=== PATIENT | female | born 1985 ===

== ENCOUNTER 2021-03-09 20:56 | Inpatient (IN) ==
[2021-03-09] MEDS ORDERED: ALBUTEROL 2.5 MG/3 ML NEB RESP TX PRN (21:18)
[2021-03-09] MEDS ORDERED: MIDAZOLAM 2 MG/2 ML VIAL IV ONE (23:13)
[2021-03-09] MEDS ORDERED: MIDAZOLAM 2 MG/2 ML VIAL ONE (23:15)
[2021-03-09] MEDS: MIDAZOLAM 100 MG in SODIUM CHLORIDE 0.9% 80 ML IV PRN (23:30)
[2021-03-09] MEDS ORDERED: SODIUM CHLORIDE 0.9% 500 ML IV ONE (23:40)
[2021-03-09] MEDS: PANTOPRAZOLE 40 MG VIAL IV SCH (23:52)
[2021-03-09] MEDS: ENOXAPARIN 40 MG/0.4 ML SYRINGE SUBCUT SCH (23:58)
[2021-03-10] MEDS: LACTATED RINGERS 1,000 ML IV SCH ×3 (00:20→16:53)
[2021-03-10] MEDS ORDERED: ALBUTEROL/IPRATROPIUM 3 ML NEB RESP TX SCH (01:00)
[2021-03-10 01:08] LABS: ABG Base Excess 1.1 MMOL/L (-2.5-2.5); ABG HCO3 24.9 MMOL/L (20-26); ABG PCO2 37.1 MM HG (35-48); ABG PH 7.445 (7.35-7.45); ABG PO2 199.5 MM HG (80-95); ABG TCO2 26.1 MMOL/L (23-27)
[2021-03-10 01:09] LABS: ABG Oxygen Saturation 99.4 % (95-100)
[2021-03-10 04:11] LABS: Hematocrit 37.8 VOL% (35.7-47.0); Hemoglobin 11.9 GM/DL (12.0-16.0); Immature Granulocytes % 0.7 %; Immature Granulocytes Absolute 0.06 #; Lymphocytes % 11.9 % (21.3-54.2); Mean Corpuscular HGB Conc 31.5 GM/DL (32-36); Mean Corpuscular Volume 84.2 FL (87-102); Mean Platelet Volume 10.3 FL (9.6-12.0); Monocytes % 6.1 % (1.7-12.7); Neutrophils % 81.3 % (38.7-73.9); Platelet Count 203 T/CUMM (130-400); Red Blood Count 4.49 MC/CUMM (3.8-5.5); White Blood Count 8.1 T/CUMM (4-12)
[2021-03-10 04:20] LABS: INR 0.9; PT Patient Result 10.3 SECS (10.5-12.0)
[2021-03-10 04:38] LABS: Albumin 1.9 G/DL (3.4-5.0); Bilirubin,Total 0.4 MG/DL (0.20-1.00); Calcium 7.8 MG/DL (8.5-10.1); Osmolality,Calculated 287.8 MOS/KG (273-304); Thyroid Stimulating Hormone 0.464 uIU/ml (0.358-3.74); Total Protein 5.7 G/DL (6.4-8.2)
[2021-03-10] MEDS ORDERED: INFLUENZA VIRUS VACCINE 0.5 ML SYRINGE IM ONE (05:08)
[2021-03-10] MEDS: DEXAMETHASONE 10 MG/1 ML VIAL IV SCH (09:02)
[2021-03-10] MEDS: ALBUTEROL INHALER 18 GM INH SCH ×4 (09:03→18:27)
[2021-03-10] MEDS: PIPERACILLIN/TAZOBACTAM 3,375 MG in SODIUM CHLORIDE 0.9% 100 ML IV SCH ×2 (09:03→16:07)
[2021-03-10] MEDS: ACETAMINOPHEN 325 MG TABLET PER TUBE PRN (09:03)
[2021-03-10] MEDS: ENOXAPARIN 40 MG/0.4 ML SYRINGE SUBCUT SCH ×2 (12:16→22:36)
[2021-03-10] MEDS: MIDAZOLAM 100 MG in SODIUM CHLORIDE 0.9% 80 ML IV PRN ×2 (12:47→23:11)
[2021-03-10] MEDS ORDERED: GLUCAGON 1 MG VIAL IM PRN (15:09)
[2021-03-10] MEDS ORDERED: DEXTROSE 50% 25 GM/50 ML SYRINGE IV PRN (15:26)
[2021-03-10] MEDS: BARICITINIB 2 MG TABLET PER TUBE SCH (16:06)
[2021-03-10] MEDS: INSULIN REGULAR 100 UNIT/ML SUBCUT SCH (18:26)
[2021-03-10] MEDS: ASCORBIC ACID 500 MG TABLET PO SCH (20:24)
[2021-03-10] MEDS: PANTOPRAZOLE 40 MG VIAL IV SCH (22:36)
[2021-03-11] MEDS: PIPERACILLIN/TAZOBACTAM 3,375 MG in SODIUM CHLORIDE 0.9% 100 ML IV SCH ×3 (00:38→16:35)
[2021-03-11] MEDS: INSULIN REGULAR 100 UNIT/ML SUBCUT SCH ×4 (00:56→18:09)
[2021-03-11] MEDS: ALBUTEROL INHALER 18 GM INH SCH ×4 (00:57→20:13)
[2021-03-11 03:21] LABS: Basophils % 0.1 % (0.0-0.8); Hematocrit 36.6 VOL% (35.7-47.0); Hemoglobin 11.7 GM/DL (12.0-16.0); Immature Granulocytes Absolute 0.09 #; Lymphocytes # 0.9 10*3/uL (1.4-4.0); Lymphocytes % 9.5 % (21.3-54.2); Mean Corpuscular Volume 84.1 FL (87-102); Mean Platelet Volume 10.1 FL (9.6-12.0); Monocytes % 5.9 % (1.7-12.7); Neutrophils % 83.5 % (38.7-73.9); Platelet Count 212 T/CUMM (130-400); Red Blood Count 4.35 MC/CUMM (3.8-5.5); Red Cell Distribution Width 12.9 % (9.3-17.3); White Blood Count 9.2 T/CUMM (4-12)
[2021-03-11 03:43] LABS: Alanine Aminotransferase 208 U/L (13-56); Albumin 1.9 G/DL (3.4-5.0); Alkaline Phosphatase 78 U/L (45-117); Aspartate Amino Transferase 85 U/L (0-37); Bilirubin,Total < 0.39 MG/DL (0.20-1.00); Blood Urea Nitrogen 15 MG/DL (7-18); Calcium 8.3 MG/DL (8.5-10.1); Carbon Dioxide 26 MMOL/L (21-32); Estimated Glom Filtration Rate 129 ML/MIN; Ferritin 864.2 ng/mL (8-252); Glucose 182 MG/DL (74-106); Osmolality,Calculated 286.3 MOS/KG (273-304); Potassium 4.1 MMOL/L (3.5-5.1); Sodium 141 MMOL/L (136-145); Total Protein 5.6 G/DL (6.4-8.2)
[2021-03-11 04:08] LABS: ABG HCO3 26.1 MMOL/L (20-26); ABG Oxygen Saturation 95.3 % (95-100); ABG PCO2 36.2 MM HG (35-48); ABG PH 7.458 (7.35-7.45); ABG PO2 76.8 MM HG (80-95); ABG TCO2 22.4 MMOL/L (23-27)
[2021-03-11] MEDS: LACTATED RINGERS 1,000 ML IV SCH (05:57)
[2021-03-11] MEDS: ZINC GLUCONATE 50 MG TABLET PO SCH (09:19)
[2021-03-11] MEDS: POTASSIUM PHOS/SOD PHOS POWDER 250 MG PACK PO SCH ×3 (09:19→20:13)
[2021-03-11] MEDS: ASCORBIC ACID 500 MG TABLET PO SCH ×2 (09:19→20:13)
[2021-03-11] MEDS: BARICITINIB 2 MG TABLET PER TUBE SCH (09:19)
[2021-03-11] MEDS: DEXAMETHASONE 10 MG/1 ML VIAL IV SCH (09:20)
[2021-03-11] MEDS: MIDAZOLAM 100 MG in SODIUM CHLORIDE 0.9% 80 ML IV PRN ×2 (11:26→23:10)
[2021-03-11] MEDS: CHOLECALCIFEROL 1,000 UNIT TABLET PO SCH (12:45)
[2021-03-11] MEDS: ENOXAPARIN 40 MG/0.4 ML SYRINGE SUBCUT SCH ×2 (12:45→22:39)
[2021-03-11] MEDS: PANTOPRAZOLE 40 MG VIAL IV SCH (22:40)
[2021-03-12] MEDS: ALBUTEROL INHALER 18 GM INH SCH ×4 (00:42→18:00)
[2021-03-12] MEDS: PIPERACILLIN/TAZOBACTAM 3,375 MG in SODIUM CHLORIDE 0.9% 100 ML IV SCH ×3 (00:42→16:21)
[2021-03-12] MEDS: INSULIN REGULAR 100 UNIT/ML SUBCUT SCH ×4 (00:42→17:56)
[2021-03-12 04:22] LABS: ABG Base Excess 2.1 MMOL/L (-2.5-2.5); ABG HCO3 26.2 MMOL/L (20-26); ABG Oxygen Saturation 97.1 % (95-100); ABG PCO2 38.4 MM HG (35-48); ABG PH 7.441 (7.35-7.45); ABG PO2 96.6 MM HG (80-95); ABG TCO2 23.1 MMOL/L (23-27)
[2021-03-12 04:24] LABS: Basophils % 0.2 % (0.0-0.8); Hematocrit 37.3 VOL% (35.7-47.0); Immature Granulocytes Absolute 0.31 #; Lymphocytes # 1.5 10*3/uL (1.4-4.0); Lymphocytes % 9.4 % (21.3-54.2); Mean Corpuscular HGB Conc 32.2 GM/DL (32-36); Mean Corpuscular Volume 83.6 FL (87-102); Mean Platelet Volume 10.1 FL (9.6-12.0); Monocytes % 7.6 % (1.7-12.7); Neutrophils % 80.8 % (38.7-73.9); Platelet Count 277 T/CUMM (130-400); Red Blood Count 4.46 MC/CUMM (3.8-5.5); Red Cell Distribution Width 12.9 % (9.3-17.3); White Blood Count 15.5 T/CUMM (4-12)
[2021-03-12 04:57] LABS: Alanine Aminotransferase 238 U/L (13-56); Albumin 1.9 G/DL (3.4-5.0); Alkaline Phosphatase 90 U/L (45-117); Aspartate Amino Transferase 95 U/L (0-37); Bilirubin,Total < 0.39 MG/DL (0.20-1.00); Blood Urea Nitrogen 16 MG/DL (7-18); Calcium 8.5 MG/DL (8.5-10.1); Carbon Dioxide 27 MMOL/L (21-32); Estimated Glom Filtration Rate 109 ML/MIN; Ferritin 779.1 ng/mL (8-252); Glucose 195 MG/DL (74-106); Osmolality,Calculated 286.3 MOS/KG (273-304); Sodium 141 MMOL/L (136-145); Total Protein 5.8 G/DL (6.4-8.2)
[2021-03-12] MEDS: POTASSIUM PHOS/SOD PHOS POWDER 250 MG PACK PO SCH ×3 (08:17→20:00)
[2021-03-12] MEDS: ZINC GLUCONATE 50 MG TABLET PO SCH (08:18)
[2021-03-12] MEDS: CHOLECALCIFEROL 1,000 UNIT TABLET PO SCH (08:18)
[2021-03-12] MEDS: ASCORBIC ACID 500 MG TABLET PO SCH ×2 (08:18→20:00)
[2021-03-12] MEDS: BARICITINIB 2 MG TABLET PER TUBE SCH (08:18)
[2021-03-12] MEDS: DEXAMETHASONE 10 MG/1 ML VIAL IV SCH (08:19)
[2021-03-12] MEDS: ENOXAPARIN 100 MG/ML SYRINGE SUBCUT SCH ×2 (09:56→20:00)
[2021-03-12] MEDS: MIDAZOLAM 100 MG in SODIUM CHLORIDE 0.9% 80 ML IV PRN ×2 (10:34→23:54)
[2021-03-13] MEDS: ALBUTEROL INHALER 18 GM INH SCH ×4 (00:14→19:00)
[2021-03-13] MEDS: PIPERACILLIN/TAZOBACTAM 3,375 MG in SODIUM CHLORIDE 0.9% 100 ML IV SCH ×3 (00:14→18:07)
[2021-03-13] MEDS: INSULIN REGULAR 100 UNIT/ML SUBCUT SCH ×4 (00:14→18:28)
[2021-03-13] MEDS: PANTOPRAZOLE 40 MG VIAL IV SCH ×2 (00:21→23:15)
[2021-03-13 04:43] LABS: Basophils % 0.2 % (0.0-0.8); Eosinophils % 0.2 % (0.00-10.9); Hematocrit 36.5 VOL% (35.7-47.0); Hemoglobin 11.6 GM/DL (12.0-16.0); Immature Granulocytes Absolute 0.69 #; Lymphocytes # 1.8 10*3/uL (1.4-4.0); Lymphocytes % 10.4 % (21.3-54.2); Mean Corpuscular HGB Conc 31.8 GM/DL (32-36); Mean Corpuscular Volume 84.7 FL (87-102); Mean Platelet Volume 10.4 FL (9.6-12.0); Monocytes % 8.3 % (1.7-12.7); Neutrophils % 76.9 % (38.7-73.9); Platelet Count 315 T/CUMM (130-400); Red Blood Count 4.31 MC/CUMM (3.8-5.5); Red Cell Distribution Width 12.9 % (9.3-17.3); White Blood Count 17.1 T/CUMM (4-12)
[2021-03-13 05:00] LABS: Alanine Aminotransferase 237 U/L (13-56); Albumin 1.9 G/DL (3.4-5.0); Alkaline Phosphatase 91 U/L (45-117); Aspartate Amino Transferase 56 U/L (0-37); Bilirubin,Total < 0.39 MG/DL (0.20-1.00); Blood Urea Nitrogen 18 MG/DL (7-18); Calcium 8.4 MG/DL (8.5-10.1); Carbon Dioxide 28 MMOL/L (21-32); Estimated Glom Filtration Rate 109 ML/MIN; Ferritin 522.1 ng/mL (8-252); Glucose 195 MG/DL (74-106); Osmolality,Calculated 285.4 MOS/KG (273-304); Potassium 4.2 MMOL/L (3.5-5.1); Sodium 140 MMOL/L (136-145); Total Protein 5.8 G/DL (6.4-8.2)
[2021-03-13 05:10] LABS: Hypochromia 1+; Lymphocytes 6 % (20-55); Microcytosis 1+; Ovalocytes Slight; Segmented Neutrophils 88 % (50-85); Total Cells Counted 100
[2021-03-13 05:11] LABS: Platelet Estimate Normal
[2021-03-13 05:12] LABS: Bilirubin,Direct 0.12 MG/DL (0.0-0.20); Bilirubin,Total 0.4 MG/DL (0.20-1.00)
[2021-03-13 05:13] LABS: Bilirubin,Indirect 0.3 MG/DL (0.0-1.0); Total Protein 5.3 G/DL (6.4-8.2)
[2021-03-13] MEDS: DEXAMETHASONE 10 MG/1 ML VIAL IV SCH (09:27)
[2021-03-13] MEDS: CHOLECALCIFEROL 1,000 UNIT TABLET PO SCH (09:29)
[2021-03-13] MEDS: ZINC GLUCONATE 50 MG TABLET PO SCH (09:29)
[2021-03-13] MEDS: ENOXAPARIN 100 MG/ML SYRINGE SUBCUT SCH ×2 (09:29→20:37)
[2021-03-13] MEDS: BARICITINIB 2 MG TABLET PER TUBE SCH (09:29)
[2021-03-13] MEDS: ASCORBIC ACID 500 MG TABLET PO SCH ×2 (09:29→20:37)
[2021-03-13] MEDS: POTASSIUM PHOS/SOD PHOS POWDER 250 MG PACK PO SCH ×3 (11:09→20:37)
[2021-03-13] MEDS: MIDAZOLAM 100 MG in SODIUM CHLORIDE 0.9% 80 ML IV PRN ×2 (11:09→21:56)
[2021-03-14] MEDS: INSULIN REGULAR 100 UNIT/ML SUBCUT SCH ×4 (00:55→17:47)
[2021-03-14 03:55] LABS: Basophils % 0.2 % (0.0-0.8); Eosinophils % 0.2 % (0.00-10.9); Hematocrit 38.1 VOL% (35.7-47.0); Immature Granulocytes % 6.4 %; Immature Granulocytes Absolute 1.19 #; Lymphocytes # 1.8 10*3/uL (1.4-4.0); Lymphocytes % 9.6 % (21.3-54.2); Mean Corpuscular HGB Conc 31.5 GM/DL (32-36); Mean Corpuscular Volume 85.2 FL (87-102); Mean Platelet Volume 10.2 FL (9.6-12.0); Monocytes % 6.8 % (1.7-12.7); Neutrophils % 76.8 % (38.7-73.9); Platelet Count 350 T/CUMM (130-400); Red Blood Count 4.47 MC/CUMM (3.8-5.5); White Blood Count 18.6 T/CUMM (4-12)
[2021-03-14 04:09] LABS: Calcium 8.6 MG/DL (8.5-10.1); Osmolality,Calculated 286.4 MOS/KG (273-304)
[2021-03-14 04:31] LABS: Alanine Aminotransferase 201 U/L (13-56); Alkaline Phosphatase 86 U/L (45-117); Aspartate Amino Transferase 38 U/L (0-37); Bilirubin,Indirect 0.2 MG/DL (0.0-1.0); Bilirubin,Total < 0.39 MG/DL (0.20-1.00)
[2021-03-14 04:47] LABS: Lymphocytes 11 % (20-55); Metamyelocytes 1 %; Segmented Neutrophils 81 % (50-85); Total Cells Counted 100
[2021-03-14 04:48] LABS: Atypical Lymphocytes Few; Hypochromia 2+; Platelet Estimate Normal
[2021-03-14 04:52] LABS: ABG Base Excess 3.2 MMOL/L (-2.5-2.5); ABG HCO3 27.1 MMOL/L (20-26); ABG Oxygen Saturation 91.5 % (95-100); ABG PCO2 41.1 MM HG (35-48); ABG PH 7.436 (7.35-7.45); ABG PO2 64.8 MM HG (80-95); ABG TCO2 24.2 MMOL/L (23-27)
[2021-03-14] MEDS: PIPERACILLIN/TAZOBACTAM 3,375 MG in SODIUM CHLORIDE 0.9% 100 ML IV SCH ×2 (06:22→16:33)
[2021-03-14] MEDS: ALBUTEROL INHALER 18 GM INH SCH ×3 (09:09→14:42)
[2021-03-14] MEDS: ZINC GLUCONATE 50 MG TABLET PO SCH (09:10)
[2021-03-14] MEDS: BARICITINIB 2 MG TABLET PER TUBE SCH (09:10)
[2021-03-14] MEDS: CHOLECALCIFEROL 1,000 UNIT TABLET PO SCH (09:10)
[2021-03-14] MEDS: ENOXAPARIN 100 MG/ML SYRINGE SUBCUT SCH ×2 (09:10→20:35)
[2021-03-14] MEDS: POTASSIUM PHOS/SOD PHOS POWDER 250 MG PACK PO SCH ×2 (09:10→16:33)
[2021-03-14] MEDS: DEXAMETHASONE 10 MG/1 ML VIAL IV SCH (09:10)
[2021-03-14] MEDS: ASCORBIC ACID 500 MG TABLET PO SCH ×2 (09:10→20:34)
[2021-03-14] MEDS: FUROSEMIDE 40 MG/4 ML VIAL IV SCH (10:30)
[2021-03-14] MEDS: MIDAZOLAM 100 MG in SODIUM CHLORIDE 0.9% 80 ML IV PRN (10:45)
[2021-03-14] MEDS ORDERED: VANCOMYCIN INJ 1,000 MG in SODIUM CHLORIDE 0.9% 250 ML IV ONE (12:49)
[2021-03-15] MEDS: PANTOPRAZOLE 40 MG VIAL IV SCH (00:23)
[2021-03-15] MEDS: PIPERACILLIN/TAZOBACTAM 3,375 MG in SODIUM CHLORIDE 0.9% 100 ML IV SCH ×2 (00:59→08:26)
[2021-03-15] MEDS: INSULIN REGULAR 100 UNIT/ML SUBCUT SCH ×4 (00:59→17:28)
[2021-03-15] MEDS: POTASSIUM PHOS/SOD PHOS POWDER 250 MG PACK PO SCH ×4 (01:01→20:37)
[2021-03-15] MEDS: MIDAZOLAM 100 MG in SODIUM CHLORIDE 0.9% 80 ML IV PRN ×2 (01:13→15:15)
[2021-03-15 04:23] LABS: Basophils % 0.2 % (0.0-0.8); Eosinophils # 0.1 10*3/uL (0.0-0.87); Eosinophils % 0.7 % (0.00-10.9); Hematocrit 37.3 VOL% (35.7-47.0); Hemoglobin 11.8 GM/DL (12.0-16.0); Immature Granulocytes % 8.4 %; Immature Granulocytes Absolute 1.54 #; Lymphocytes # 2.2 10*3/uL (1.4-4.0); Lymphocytes % 12.2 % (21.3-54.2); Mean Corpuscular HGB Conc 31.6 GM/DL (32-36); Mean Corpuscular Volume 84.6 FL (87-102); Mean Platelet Volume 10.2 FL (9.6-12.0); Monocytes % 7.3 % (1.7-12.7); Neutrophils % 71.2 % (38.7-73.9); Platelet Count 373 T/CUMM (130-400); Red Blood Count 4.41 MC/CUMM (3.8-5.5); Red Cell Distribution Width 12.9 % (9.3-17.3); White Blood Count 18.4 T/CUMM (4-12)
[2021-03-15 04:30] LABS: Allen Test Positive; Pt O2 Delivery Device Ventilator
[2021-03-15 04:31] LABS: ABG Base Excess 4.6 MMOL/L (-2.5-2.5); ABG Oxygen Saturation 93.6 % (95-100); ABG PCO2 42.5 MM HG (35-48); ABG PH 7.452 (7.35-7.45); ABG PO2 69.7 MM HG (80-95); ABG TCO2 30.3 MMOL/L (23-27)
[2021-03-15 04:41] LABS: Calcium 8.5 MG/DL (8.5-10.1); Osmolality,Calculated 287.3 MOS/KG (273-304); Potassium 4.1 MMOL/L (3.5-5.1)
[2021-03-15 04:43] LABS: Hypochromia Slight; Lymphocytes 15 % (20-55); Microcytosis Slight; Platelet Estimate Adequate; Segmented Neutrophils 79 % (50-85); Total Cells Counted 100
[2021-03-15 05:03] LABS: Alanine Aminotransferase 193 U/L (13-56); Albumin 2.2 G/DL (3.4-5.0); Alkaline Phosphatase 83 U/L (45-117); Aspartate Amino Transferase 44 U/L (0-37); Bilirubin,Indirect 0.2 MG/DL (0.0-1.0); Bilirubin,Total < 0.39 MG/DL (0.20-1.00); Total Protein 5.7 G/DL (6.4-8.2)
[2021-03-15] MEDS: ALBUTEROL INHALER 18 GM INH SCH ×4 (07:52→20:01)
[2021-03-15] MEDS: CHOLECALCIFEROL 1,000 UNIT TABLET PO SCH (08:27)
[2021-03-15] MEDS: BARICITINIB 2 MG TABLET PER TUBE SCH (08:27)
[2021-03-15] MEDS: ZINC GLUCONATE 50 MG TABLET PO SCH (08:27)
[2021-03-15] MEDS: ASCORBIC ACID 500 MG TABLET PO SCH ×2 (08:27→20:37)
[2021-03-15] MEDS: ENOXAPARIN 100 MG/ML SYRINGE SUBCUT SCH ×2 (08:28→20:37)
[2021-03-15] MEDS: FUROSEMIDE 40 MG/4 ML VIAL IV SCH (08:29)
[2021-03-15] MEDS: DEXAMETHASONE 10 MG/1 ML VIAL IV SCH (08:32)
[2021-03-15] MEDS: CLINDAMYCIN INJ 600 MG/50 ML PREMIX IV SCH ×2 (12:45→20:37)
[2021-03-15] MEDS ORDERED: DEXMEDETOMIDINE 200 MCG in SODIUM CHLORIDE 0.9% 48 ML IV PRN (13:27)
[2021-03-15] MEDS: DEXMEDETOMIDINE 400 MCG in SODIUM CHLORIDE 0.9% 96 ML IV PRN (19:45)
[2021-03-16] MEDS: INSULIN REGULAR 100 UNIT/ML SUBCUT SCH ×4 (00:20→18:57)
[2021-03-16] MEDS: ALBUTEROL INHALER 18 GM INH SCH ×4 (00:20→18:58)
[2021-03-16] MEDS: PANTOPRAZOLE 40 MG VIAL IV SCH (00:20)
[2021-03-16] MEDS: DEXMEDETOMIDINE 400 MCG in SODIUM CHLORIDE 0.9% 96 ML IV PRN ×3 (03:00→17:44)
[2021-03-16] MEDS: CLINDAMYCIN INJ 600 MG/50 ML PREMIX IV SCH ×3 (03:43→20:38)
[2021-03-16 04:03] LABS: Basophils % 0.2 % (0.0-0.8); Eosinophils # 0.1 10*3/uL (0.0-0.87); Eosinophils % 0.6 % (0.00-10.9); Hematocrit 40.2 VOL% (35.7-47.0); Hemoglobin 12.7 GM/DL (12.0-16.0); Immature Granulocytes % 7.7 %; Lymphocytes # 2.1 10*3/uL (1.4-4.0); Lymphocytes % 10.7 % (21.3-54.2); Mean Corpuscular HGB Conc 31.6 GM/DL (32-36); Mean Corpuscular Volume 84.8 FL (87-102); Mean Platelet Volume 10.3 FL (9.6-12.0); Monocytes % 6.9 % (1.7-12.7); Neutrophils % 73.9 % (38.7-73.9); Platelet Count 409 T/CUMM (130-400); Red Blood Count 4.74 MC/CUMM (3.8-5.5); Red Cell Distribution Width 13.1 % (9.3-17.3); White Blood Count 19.6 T/CUMM (4-12)
[2021-03-16 04:19] LABS: ABG Base Excess 3.3 MMOL/L (-2.5-2.5); ABG HCO3 27.6 MMOL/L (20-26); ABG Oxygen Saturation 94.4 % (95-100); ABG PCO2 40.7 MM HG (35-48); ABG PH 7.449 (7.35-7.45); ABG PO2 71.8 MM HG (80-95); ABG TCO2 28.8 MMOL/L (23-27)
[2021-03-16 04:21] LABS: Calcium 8.9 MG/DL (8.5-10.1); Osmolality,Calculated 293.4 MOS/KG (273-304); Potassium 4.5 MMOL/L (3.5-5.1)
[2021-03-16 04:29] LABS: Band Neutrophils 4 % (0-10); Hypochromia 1+; Lymphocytes 10 % (20-55); Microcytosis 1+; Myelocytes 2 %; Segmented Neutrophils 77 % (50-85); Total Cells Counted 100
[2021-03-16 04:30] LABS: Platelet Estimate Increased
[2021-03-16 04:47] LABS: Alanine Aminotransferase 194 U/L (13-56); Albumin 2.4 G/DL (3.4-5.0); Alkaline Phosphatase 89 U/L (45-117); Aspartate Amino Transferase 39 U/L (0-37); Bilirubin,Indirect 0.3 MG/DL (0.0-1.0); Bilirubin,Total < 0.39 MG/DL (0.20-1.00); Total Protein 6.2 G/DL (6.4-8.2)
[2021-03-16] MEDS ORDERED: DEXTROSE 50% 25 GM/50 ML VIAL IV PRN (05:27)
[2021-03-16] MEDS: ENOXAPARIN 100 MG/ML SYRINGE SUBCUT SCH ×2 (08:37→20:38)
[2021-03-16] MEDS: DEXAMETHASONE 10 MG/1 ML VIAL IV SCH (08:37)
[2021-03-16] MEDS: POTASSIUM PHOS/SOD PHOS POWDER 250 MG PACK PO SCH ×3 (08:38→20:38)
[2021-03-16] MEDS: ZINC GLUCONATE 50 MG TABLET PO SCH (08:38)
[2021-03-16] MEDS: CHOLECALCIFEROL 1,000 UNIT TABLET PO SCH (08:38)
[2021-03-16] MEDS: ASCORBIC ACID 500 MG TABLET PO SCH ×2 (08:38→20:38)
[2021-03-16] MEDS: BARICITINIB 2 MG TABLET PER TUBE SCH (08:38)
[2021-03-16] MEDS: FUROSEMIDE 40 MG/4 ML VIAL IV SCH (08:39)
[2021-03-16] MEDS: INSULIN GLARGINE 100 UNIT/ML SUBCUT SCH (11:50)
[2021-03-17] MEDS: DEXMEDETOMIDINE 400 MCG in SODIUM CHLORIDE 0.9% 96 ML IV PRN ×4 (00:40→21:36)
[2021-03-17] MEDS: PANTOPRAZOLE 40 MG VIAL IV SCH (00:57)
[2021-03-17] MEDS: INSULIN REGULAR 100 UNIT/ML SUBCUT SCH ×4 (00:57→18:10)
[2021-03-17] MEDS: ALBUTEROL INHALER 18 GM INH SCH ×4 (01:05→18:10)
[2021-03-17 04:26] LABS: ABG Base Excess 3.3 MMOL/L (-2.5-2.5); ABG HCO3 27.8 MMOL/L (20-26); ABG Oxygen Saturation 94.6 % (95-100); ABG PCO2 42.1 MM HG (35-48); ABG PH 7.438 (7.35-7.45); ABG PO2 73.9 MM HG (80-95); ABG TCO2 29.1 MMOL/L (23-27)
[2021-03-17] MEDS: CLINDAMYCIN INJ 600 MG/50 ML PREMIX IV SCH ×2 (05:00→11:59)
[2021-03-17] MEDS: ONDANSETRON 4 MG/2 ML VIAL IV PRN ×2 (05:00→20:36)
[2021-03-17 05:05] LABS: Basophils % 0.2 % (0.0-0.8); Eosinophils # 0.2 10*3/uL (0.0-0.87); Eosinophils % 0.7 % (0.00-10.9); Hematocrit 42.1 VOL% (35.7-47.0); Hemoglobin 13.2 GM/DL (12.0-16.0); Immature Granulocytes Absolute 1.27 #; Lymphocytes # 2.9 10*3/uL (1.4-4.0); Lymphocytes % 13.6 % (21.3-54.2); Mean Corpuscular HGB Conc 31.4 GM/DL (32-36); Mean Corpuscular Volume 85.4 FL (87-102); Mean Platelet Volume 10.5 FL (9.6-12.0); Monocytes % 6.8 % (1.7-12.7); Neutrophils % 72.7 % (38.7-73.9); Platelet Count 397 T/CUMM (130-400); Red Blood Count 4.93 MC/CUMM (3.8-5.5); Red Cell Distribution Width 13.2 % (9.3-17.3); White Blood Count 21.2 T/CUMM (4-12)
[2021-03-17 05:21] LABS: Alanine Aminotransferase 168 U/L (13-56); Albumin 2.5 G/DL (3.4-5.0); Alkaline Phosphatase 87 U/L (45-117); Aspartate Amino Transferase 32 U/L (0-37); Bilirubin,Total < 0.39 MG/DL (0.20-1.00); Blood Urea Nitrogen 30 MG/DL (7-18); Calcium 9.7 MG/DL (8.5-10.1); Carbon Dioxide 30 MMOL/L (21-32); Estimated Glom Filtration Rate 107 ML/MIN; Glucose 168 MG/DL (74-106); Osmolality,Calculated 286.5 MOS/KG (273-304); Potassium 3.9 MMOL/L (3.5-5.1); Sodium 139 MMOL/L (136-145); Total Protein 7.2 G/DL (6.4-8.2)
[2021-03-17 05:24] LABS: Band Neutrophils 1 % (0-10); Eosinophils 1 % (0-10); Hypochromia Slight; Lymphocytes 17 % (20-55); Microcytosis Slight; Platelet Estimate Adequate; Segmented Neutrophils 69 % (50-85); Total Cells Counted 100
[2021-03-17] MEDS: FUROSEMIDE 40 MG/4 ML VIAL IV SCH (08:06)
[2021-03-17] MEDS: DEXAMETHASONE 10 MG/1 ML VIAL IV SCH (08:09)
[2021-03-17] MEDS: BARICITINIB 2 MG TABLET PER TUBE SCH (08:10)
[2021-03-17] MEDS: ASCORBIC ACID 500 MG TABLET PO SCH ×2 (08:10→20:09)
[2021-03-17] MEDS: CHOLECALCIFEROL 1,000 UNIT TABLET PO SCH (08:11)
[2021-03-17] MEDS: ENOXAPARIN 100 MG/ML SYRINGE SUBCUT SCH ×2 (08:11→20:09)
[2021-03-17] MEDS: INSULIN GLARGINE 100 UNIT/ML SUBCUT SCH (08:11)
[2021-03-17] MEDS: POTASSIUM PHOS/SOD PHOS POWDER 250 MG PACK PO SCH ×3 (08:11→20:09)
[2021-03-17] MEDS: ZINC GLUCONATE 50 MG TABLET PO SCH (08:11)
[2021-03-17 11:21] LABS: Allen Test Positive; Pt O2 Delivery Device Ventilator
[2021-03-17 11:22] LABS: ABG Base Excess 3.9 MMOL/L (-2.5-2.5); ABG HCO3 27.8 MMOL/L (20-26); ABG Oxygen Saturation 96.3 % (95-100); ABG PCO2 42.5 MM HG (35-48); ABG PH 7.436 (7.35-7.45); ABG PO2 88.2 MM HG (80-95); ABG TCO2 24.5 MMOL/L (23-27)
[2021-03-17] MEDS: LEVOFLOXACIN INJ 750 MG/150 ML PREMIX IV SCH (14:13)
[2021-03-18] MEDS: ALBUTEROL INHALER 18 GM INH SCH ×4 (00:15→20:57)
[2021-03-18] MEDS: PANTOPRAZOLE 40 MG VIAL IV SCH ×2 (00:15→23:57)
[2021-03-18] MEDS: INSULIN REGULAR 100 UNIT/ML SUBCUT SCH ×4 (00:15→17:58)
[2021-03-18 04:26] LABS: ABG Base Excess 2.3 MMOL/L (-2.5-2.5); ABG HCO3 26.4 MMOL/L (20-26); ABG Oxygen Saturation 99.3 % (95-100); ABG PCO2 49.5 MM HG (35-48); ABG PH 7.369 (7.35-7.45); ABG TCO2 24.9 MMOL/L (23-27)
[2021-03-18] MEDS: DEXMEDETOMIDINE 400 MCG in SODIUM CHLORIDE 0.9% 96 ML IV PRN ×2 (04:48→12:09)
[2021-03-18 05:02] LABS: Basophils % 0.2 % (0.0-0.8); Eosinophils # 0.1 10*3/uL (0.0-0.87); Eosinophils % 0.5 % (0.00-10.9); Hematocrit 40.4 VOL% (35.7-47.0); Hemoglobin 12.6 GM/DL (12.0-16.0); Immature Granulocytes % 3.2 %; Immature Granulocytes Absolute 0.61 #; Lymphocytes # 2.7 10*3/uL (1.4-4.0); Lymphocytes % 13.8 % (21.3-54.2); Mean Corpuscular HGB Conc 31.2 GM/DL (32-36); Mean Corpuscular Volume 85.6 FL (87-102); Mean Platelet Volume 10.6 FL (9.6-12.0); Monocytes % 7.5 % (1.7-12.7); Neutrophils % 74.8 % (38.7-73.9); Platelet Count 382 T/CUMM (130-400); Red Blood Count 4.72 MC/CUMM (3.8-5.5); Red Cell Distribution Width 13.3 % (9.3-17.3); White Blood Count 19.3 T/CUMM (4-12)
[2021-03-18 05:21] LABS: Eosinophils 1 % (0-10); Hypochromia Slight; Lymphocytes 18 % (20-55); Microcytosis Slight; Platelet Estimate Adequate; Segmented Neutrophils 74 % (50-85); Total Cells Counted 100
[2021-03-18 05:25] LABS: Calcium 9.3 MG/DL (8.5-10.1); Ferritin 745.2 ng/mL (8-252)
[2021-03-18] MEDS: FUROSEMIDE 40 MG/4 ML VIAL IV SCH (08:00)
[2021-03-18] MEDS: DEXAMETHASONE 10 MG/1 ML VIAL IV SCH (08:01)
[2021-03-18] MEDS: INSULIN GLARGINE 100 UNIT/ML SUBCUT SCH ×2 (08:01→09:15)
[2021-03-18] MEDS: POTASSIUM PHOS/SOD PHOS POWDER 250 MG PACK PO SCH ×3 (08:01→20:57)
[2021-03-18] MEDS: ENOXAPARIN 100 MG/ML SYRINGE SUBCUT SCH ×2 (08:01→20:58)
[2021-03-18] MEDS: CHOLECALCIFEROL 1,000 UNIT TABLET PO SCH (08:02)
[2021-03-18] MEDS: ASCORBIC ACID 500 MG TABLET PO SCH ×2 (08:02→20:57)
[2021-03-18] MEDS: BARICITINIB 2 MG TABLET PER TUBE SCH (08:02)
[2021-03-18] MEDS: ZINC GLUCONATE 50 MG TABLET PO SCH (08:02)
[2021-03-18] MEDS: ALPRAZolam 0.25 MG TABLET PO PRN ×2 (09:22→22:13)
[2021-03-18] MEDS: METOCLOPRAMIDE 10 MG/2 ML VIAL IV SCH ×3 (12:19→23:57)
[2021-03-18 13:19] LABS: ABG Base Excess 5.8 MMOL/L (-2.5-2.5); ABG HCO3 29.6 MMOL/L (20-26); ABG Oxygen Saturation 97.3 % (95-100); ABG TCO2 26.5 MMOL/L (23-27); Allen Test Positive; Pt O2 Delivery Device Ventilator
[2021-03-18] MEDS: LEVOFLOXACIN INJ 750 MG/150 ML PREMIX IV SCH (13:46)
[2021-03-18] MEDS: ACETAMINOPHEN 325 MG TABLET PER TUBE PRN (20:58)
[2021-03-19] MEDS: INSULIN REGULAR 100 UNIT/ML SUBCUT SCH ×5 (00:01→21:51)
[2021-03-19] MEDS: ALBUTEROL INHALER 18 GM INH SCH ×4 (01:59→18:03)
[2021-03-19 04:19] LABS: ABG Base Excess 3.3 MMOL/L (-2.5-2.5); ABG HCO3 24.4 MMOL/L (20-26); ABG Oxygen Saturation 99.5 % (95-100); ABG PCO2 28.2 MM HG (35-48); ABG PH 7.555 (7.35-7.45); ABG PO2 189.2 MM HG (80-95); ABG TCO2 25.3 MMOL/L (23-27)
[2021-03-19 04:27] LABS: Basophils % 0.1 % (0.0-0.8); Eosinophils # 0.1 10*3/uL (0.0-0.87); Eosinophils % 0.6 % (0.00-10.9); Hematocrit 38.9 VOL% (35.7-47.0); Hemoglobin 12.3 GM/DL (12.0-16.0); Immature Granulocytes % 1.4 %; Immature Granulocytes Absolute 0.23 #; Lymphocytes # 2.8 10*3/uL (1.4-4.0); Lymphocytes % 17.6 % (21.3-54.2); Mean Corpuscular HGB Conc 31.6 GM/DL (32-36); Mean Corpuscular Volume 84.6 FL (87-102); Mean Platelet Volume 10.7 FL (9.6-12.0); Neutrophils % 72.3 % (38.7-73.9); Platelet Count 399 T/CUMM (130-400); Red Cell Distribution Width 13.4 % (9.3-17.3); White Blood Count 15.9 T/CUMM (4-12)
[2021-03-19] MEDS: MORPHINE 2 MG/1 ML SYRINGE IV PRN ×2 (04:37→18:03)
[2021-03-19 04:50] LABS: Calcium 9.1 MG/DL (8.5-10.1); Osmolality,Calculated 290.3 MOS/KG (273-304)
[2021-03-19] MEDS: METOCLOPRAMIDE 10 MG/2 ML VIAL IV SCH ×3 (06:15→18:03)
[2021-03-19] MEDS ORDERED: POTASSIUM BICARB EFFERVESCENT 20 MEQ TAB.EFF PER TUBE PRN (07:07)
[2021-03-19] MEDS ORDERED: SODIUM CHLORIDE 0.9% 500 ML IV ONE (09:38)
[2021-03-19] MEDS: INSULIN GLARGINE 100 UNIT/ML SUBCUT SCH (10:26)
[2021-03-19] MEDS: BARICITINIB 2 MG TABLET PER TUBE SCH (10:50)
[2021-03-19] MEDS: ALPRAZolam 0.5 MG TABLET PO PRN (10:50)
[2021-03-19] MEDS: POTASSIUM PHOS/SOD PHOS POWDER 250 MG PACK PO SCH ×3 (10:50→20:22)
[2021-03-19] MEDS: DEXAMETHASONE 10 MG/1 ML VIAL IV SCH (10:50)
[2021-03-19] MEDS: ENOXAPARIN 100 MG/ML SYRINGE SUBCUT SCH ×2 (10:50→20:22)
[2021-03-19] MEDS: ASCORBIC ACID 500 MG TABLET PO SCH ×2 (13:30→20:22)
[2021-03-19] MEDS: ZINC GLUCONATE 50 MG TABLET PO SCH (13:30)
[2021-03-19] MEDS: CHOLECALCIFEROL 1,000 UNIT TABLET PO SCH (13:30)
[2021-03-19] MEDS: LEVOFLOXACIN INJ 750 MG/150 ML PREMIX IV SCH (14:45)
[2021-03-19] MEDS: ONDANSETRON 4 MG/2 ML VIAL IV PRN (18:03)
[2021-03-20] MEDS: METOCLOPRAMIDE 10 MG/2 ML VIAL IV SCH ×4 (00:09→18:38)
[2021-03-20] MEDS: ALPRAZolam 0.5 MG TABLET PO PRN ×3 (00:09→21:15)
[2021-03-20] MEDS: ALBUTEROL INHALER 18 GM INH SCH ×4 (00:10→20:32)
[2021-03-20 05:07] LABS: Basophils % 0.2 % (0.0-0.8); Eosinophils # 0.1 10*3/uL (0.0-0.87); Eosinophils % 0.9 % (0.00-10.9); Hematocrit 36.1 VOL% (35.7-47.0); Hemoglobin 11.3 GM/DL (12.0-16.0); Immature Granulocytes % 0.8 %; Lymphocytes # 2.3 10*3/uL (1.4-4.0); Lymphocytes % 19.2 % (21.3-54.2); Mean Corpuscular HGB Conc 31.3 GM/DL (32-36); Mean Corpuscular Volume 86.2 FL (87-102); Mean Platelet Volume 10.5 FL (9.6-12.0); Monocytes % 8.6 % (1.7-12.7); Neutrophils % 70.3 % (38.7-73.9); Platelet Count 337 T/CUMM (130-400); Red Blood Count 4.19 MC/CUMM (3.8-5.5); Red Cell Distribution Width 13.6 % (9.3-17.3); White Blood Count 12.2 T/CUMM (4-12)
[2021-03-20 05:20] LABS: Osmolality,Calculated 286.3 MOS/KG (273-304); Potassium 3.5 MMOL/L (3.5-5.1)
[2021-03-20] MEDS: INSULIN REGULAR 100 UNIT/ML SUBCUT SCH ×4 (08:58→20:32)
[2021-03-20] MEDS: POTASSIUM PHOS/SOD PHOS POWDER 250 MG PACK PO SCH ×3 (08:59→20:32)
[2021-03-20] MEDS ORDERED: INSULIN GLARGINE 100 UNIT/ML SUBCUT SCH (09:00)
[2021-03-20] MEDS ORDERED: DEXTROSE 50% 25 GM/50 ML VIAL IV PRN (10:43)
[2021-03-20] MEDS ORDERED: GLUCAGON 1 MG VIAL IM PRN (10:43)
[2021-03-20] MEDS: DEXAMETHASONE 10 MG/1 ML VIAL IV SCH (11:44)
[2021-03-20] MEDS: ENOXAPARIN 100 MG/ML SYRINGE SUBCUT SCH ×2 (11:44→20:32)
[2021-03-20] MEDS: ASCORBIC ACID 500 MG TABLET PO SCH ×2 (13:12→20:32)
[2021-03-20] MEDS: BARICITINIB 2 MG TABLET PER TUBE SCH (13:12)
[2021-03-20] MEDS: ZINC GLUCONATE 50 MG TABLET PO SCH (13:12)
[2021-03-20] MEDS: CHOLECALCIFEROL 1,000 UNIT TABLET PO SCH (13:12)
[2021-03-20] MEDS: LEVOFLOXACIN INJ 750 MG/150 ML PREMIX IV SCH (15:30)
[2021-03-20] MEDS: FAMOTIDINE 20 MG TABLET PO SCH (20:32)
[2021-03-21] MEDS: METOCLOPRAMIDE 10 MG/2 ML VIAL IV SCH ×2 (00:10→05:33)
[2021-03-21] MEDS: ALBUTEROL INHALER 18 GM INH SCH ×4 (00:10→20:54)
[2021-03-21 04:49] LABS: Basophils % 0.1 % (0.0-0.8); Eosinophils # 0.1 10*3/uL (0.0-0.87); Eosinophils % 0.6 % (0.00-10.9); Hematocrit 36.3 VOL% (35.7-47.0); Hemoglobin 11.3 GM/DL (12.0-16.0); Immature Granulocytes % 0.7 %; Immature Granulocytes Absolute 0.07 #; Lymphocytes # 1.8 10*3/uL (1.4-4.0); Lymphocytes % 17.8 % (21.3-54.2); Mean Corpuscular HGB Conc 31.1 GM/DL (32-36); Mean Corpuscular Volume 86.2 FL (87-102); Mean Platelet Volume 10.6 FL (9.6-12.0); Neutrophils % 71.8 % (38.7-73.9); Platelet Count 290 T/CUMM (130-400); Red Blood Count 4.21 MC/CUMM (3.8-5.5); Red Cell Distribution Width 13.7 % (9.3-17.3); White Blood Count 10.2 T/CUMM (4-12)
[2021-03-21 05:01] LABS: Calcium 8.9 MG/DL (8.5-10.1); Osmolality,Calculated 283.4 MOS/KG (273-304); Potassium 3.6 MMOL/L (3.5-5.1)
[2021-03-21] MEDS: INSULIN REGULAR 100 UNIT/ML SUBCUT SCH ×4 (09:04→20:37)
[2021-03-21] MEDS: DEXAMETHASONE 4 MG/1 ML VIAL IV SCH (09:04)
[2021-03-21] MEDS: POTASSIUM PHOS/SOD PHOS POWDER 250 MG PACK PO SCH ×3 (09:05→20:37)
[2021-03-21] MEDS: ASCORBIC ACID 500 MG TABLET PO SCH ×2 (09:05→20:37)
[2021-03-21] MEDS: BARICITINIB 2 MG TABLET PER TUBE SCH (09:05)
[2021-03-21] MEDS: FAMOTIDINE 20 MG TABLET PO SCH ×2 (09:05→20:37)
[2021-03-21] MEDS: ENOXAPARIN 100 MG/ML SYRINGE SUBCUT SCH ×2 (09:05→20:37)
[2021-03-21] MEDS: CHOLECALCIFEROL 1,000 UNIT TABLET PO SCH (09:06)
[2021-03-21] MEDS: ZINC GLUCONATE 50 MG TABLET PO SCH (09:06)
[2021-03-21] MEDS: POLYETHYLENE GLYCOL POWDER 17 GM PACK PO SCH (12:00)
[2021-03-21] MEDS: guaiFENesin/DM ER 600-30 MG TABLET PO PRN (14:36)
[2021-03-21] MEDS: LEVOFLOXACIN INJ 750 MG/150 ML PREMIX IV SCH (14:36)
[2021-03-21] MEDS: ALPRAZolam 0.5 MG TABLET PO PRN (20:37)
[2021-03-22] MEDS: ALBUTEROL INHALER 18 GM INH SCH ×4 (00:10→18:12)
[2021-03-22 05:05] LABS: Basophils % 0.2 % (0.0-0.8); Eosinophils # 0.1 10*3/uL (0.0-0.87); Eosinophils % 1.1 % (0.00-10.9); Hematocrit 35.7 VOL% (35.7-47.0); Hemoglobin 11.2 GM/DL (12.0-16.0); Immature Granulocytes % 0.6 %; Immature Granulocytes Absolute 0.06 #; Lymphocytes # 3.3 10*3/uL (1.4-4.0); Lymphocytes % 30.9 % (21.3-54.2); Mean Corpuscular HGB Conc 31.4 GM/DL (32-36); Mean Corpuscular Volume 86.2 FL (87-102); Mean Platelet Volume 10.5 FL (9.6-12.0); Monocytes % 8.9 % (1.7-12.7); Neutrophils % 58.3 % (38.7-73.9); Platelet Count 285 T/CUMM (130-400); Red Blood Count 4.14 MC/CUMM (3.8-5.5); Red Cell Distribution Width 13.6 % (9.3-17.3); White Blood Count 10.6 T/CUMM (4-12)
[2021-03-22 06:20] LABS: Calcium 9.1 MG/DL (8.5-10.1); Osmolality,Calculated 285.1 MOS/KG (273-304); Potassium 3.6 MMOL/L (3.5-5.1)
[2021-03-22] MEDS: INSULIN REGULAR 100 UNIT/ML SUBCUT SCH ×4 (07:40→20:47)
[2021-03-22] MEDS: ASCORBIC ACID 500 MG TABLET PO SCH ×2 (09:38→20:46)
[2021-03-22] MEDS: ENOXAPARIN 100 MG/ML SYRINGE SUBCUT SCH ×2 (09:38→20:47)
[2021-03-22] MEDS: DEXAMETHASONE 4 MG/1 ML VIAL IV SCH (09:38)
[2021-03-22] MEDS: FAMOTIDINE 20 MG TABLET PO SCH ×2 (09:38→20:46)
[2021-03-22] MEDS: ZINC GLUCONATE 50 MG TABLET PO SCH (09:38)
[2021-03-22] MEDS: BARICITINIB 2 MG TABLET PER TUBE SCH (09:38)
[2021-03-22] MEDS: POTASSIUM PHOS/SOD PHOS POWDER 250 MG PACK PO SCH ×3 (09:38→22:08)
[2021-03-22] MEDS: CHOLECALCIFEROL 1,000 UNIT TABLET PO SCH (09:38)
[2021-03-22] MEDS: POLYETHYLENE GLYCOL POWDER 17 GM PACK PO SCH (09:38)
[2021-03-22] MEDS: LEVOFLOXACIN INJ 750 MG/150 ML PREMIX IV SCH (14:31)
[2021-03-22] MEDS: INSULIN GLARGINE 100 UNIT/ML SUBCUT SCH (20:48)
[2021-03-23] MEDS: ASCORBIC ACID 500 MG TABLET PO SCH ×2 (08:44→21:23)
[2021-03-23] MEDS: BARICITINIB 2 MG TABLET PER TUBE SCH (08:44)
[2021-03-23] MEDS: ALBUTEROL INHALER 18 GM INH SCH ×4 (08:44→20:20)
[2021-03-23] MEDS: CHOLECALCIFEROL 1,000 UNIT TABLET PO SCH (08:44)
[2021-03-23] MEDS: INSULIN REGULAR 100 UNIT/ML SUBCUT SCH ×4 (08:44→21:32)
[2021-03-23] MEDS: ENOXAPARIN 100 MG/ML SYRINGE SUBCUT SCH ×2 (08:45→21:32)
[2021-03-23] MEDS: FAMOTIDINE 20 MG TABLET PO SCH ×2 (08:45→21:33)
[2021-03-23] MEDS: POTASSIUM PHOS/SOD PHOS POWDER 250 MG PACK PO SCH ×3 (08:45→21:23)
[2021-03-23] MEDS: DEXAMETHASONE 4 MG/1 ML VIAL IV SCH (08:45)
[2021-03-23] MEDS: ZINC GLUCONATE 50 MG TABLET PO SCH (08:45)
[2021-03-23] MEDS: POLYETHYLENE GLYCOL POWDER 17 GM PACK PO SCH (09:06)
[2021-03-23 12:19] LABS: Basophils % 0.1 % (0.0-0.8); Eosinophils # 0.1 10*3/uL (0.0-0.87); Eosinophils % 1.2 % (0.00-10.9); Hematocrit 37.9 VOL% (35.7-47.0); Immature Granulocytes % 0.8 %; Immature Granulocytes Absolute 0.07 #; Lymphocytes # 2.3 10*3/uL (1.4-4.0); Lymphocytes % 25.3 % (21.3-54.2); Mean Corpuscular HGB Conc 31.7 GM/DL (32-36); Mean Platelet Volume 10.8 FL (9.6-12.0); Monocytes % 5.6 % (1.7-12.7); Platelet Count 282 T/CUMM (130-400); Red Blood Count 4.46 MC/CUMM (3.8-5.5); Red Cell Distribution Width 13.7 % (9.3-17.3); White Blood Count 9.2 T/CUMM (4-12)
[2021-03-23 12:32] LABS: Albumin 2.7 G/DL (3.4-5.0); Bilirubin,Total 0.4 MG/DL (0.20-1.00); Calcium 9.3 MG/DL (8.5-10.1); Osmolality,Calculated 276.8 MOS/KG (273-304); Potassium 3.9 MMOL/L (3.5-5.1); Total Protein 6.8 G/DL (6.4-8.2)
[2021-03-23] MEDS: LEVOFLOXACIN INJ 750 MG/150 ML PREMIX IV SCH (16:33)
[2021-03-23] MEDS: MELATONIN 3 MG TABLET PO PRN (21:23)
[2021-03-23] MEDS: INSULIN GLARGINE 100 UNIT/ML SUBCUT SCH (21:32)
[2021-03-24] MEDS: ALBUTEROL INHALER 18 GM INH SCH ×4 (02:50→21:18)
[2021-03-24 04:43] LABS: Basophils % 0.2 % (0.0-0.8); Eosinophils # 0.1 10*3/uL (0.0-0.87); Hematocrit 35.5 VOL% (35.7-47.0); Hemoglobin 11.4 GM/DL (12.0-16.0); Immature Granulocytes % 1.1 %; Immature Granulocytes Absolute 0.13 #; Lymphocytes # 4.4 10*3/uL (1.4-4.0); Lymphocytes % 35.5 % (21.3-54.2); Mean Corpuscular HGB Conc 32.1 GM/DL (32-36); Mean Corpuscular Volume 85.1 FL (87-102); Mean Platelet Volume 10.8 FL (9.6-12.0); Monocytes % 7.7 % (1.7-12.7); Neutrophils % 54.5 % (38.7-73.9); Platelet Count 231 T/CUMM (130-400); Red Blood Count 4.17 MC/CUMM (3.8-5.5); Red Cell Distribution Width 13.6 % (9.3-17.3); White Blood Count 12.2 T/CUMM (4-12)
[2021-03-24 05:00] LABS: Alanine Aminotransferase 191 U/L (13-56); Albumin 2.5 G/DL (3.4-5.0); Alkaline Phosphatase 78 U/L (45-117); Aspartate Amino Transferase 38 U/L (0-37); Bilirubin,Total < 0.39 MG/DL (0.20-1.00); Blood Urea Nitrogen 17 MG/DL (7-18); Calcium 9.2 MG/DL (8.5-10.1); Carbon Dioxide 26 MMOL/L (21-32); Estimated Glom Filtration Rate 128 ML/MIN; Glucose 98 MG/DL (74-106); Osmolality,Calculated 278.5 MOS/KG (273-304); Potassium 3.7 MMOL/L (3.5-5.1); Sodium 139 MMOL/L (136-145); Total Protein 6.4 G/DL (6.4-8.2)
[2021-03-24] MEDS: POLYETHYLENE GLYCOL POWDER 17 GM PACK PO SCH (08:33)
[2021-03-24] MEDS: POTASSIUM PHOS/SOD PHOS POWDER 250 MG PACK PO SCH ×3 (08:33→21:17)
[2021-03-24] MEDS: CHOLECALCIFEROL 1,000 UNIT TABLET PO SCH (08:33)
[2021-03-24] MEDS: ENOXAPARIN 100 MG/ML SYRINGE SUBCUT SCH ×2 (08:33→21:18)
[2021-03-24] MEDS: ZINC GLUCONATE 50 MG TABLET PO SCH (08:33)
[2021-03-24] MEDS: FAMOTIDINE 20 MG TABLET PO SCH ×2 (08:33→21:18)
[2021-03-24] MEDS: DEXAMETHASONE 4 MG/1 ML VIAL IV SCH (08:33)
[2021-03-24] MEDS: ASCORBIC ACID 500 MG TABLET PO SCH ×2 (08:33→21:18)
[2021-03-24] MEDS: INSULIN REGULAR 100 UNIT/ML SUBCUT SCH ×3 (08:44→17:05)
[2021-03-25] MEDS: ALBUTEROL INHALER 18 GM INH SCH ×4 (01:05→18:09)
[2021-03-25 04:00] LABS: Basophils % 0.2 % (0.0-0.8); Eosinophils # 0.1 10*3/uL (0.0-0.87); Eosinophils % 1.1 % (0.00-10.9); Hematocrit 36.8 VOL% (35.7-47.0); Hemoglobin 11.7 GM/DL (12.0-16.0); Immature Granulocytes Absolute 0.13 #; Lymphocytes # 4.1 10*3/uL (1.4-4.0); Mean Corpuscular HGB Conc 31.8 GM/DL (32-36); Mean Corpuscular Volume 85.2 FL (87-102); Mean Platelet Volume 10.2 FL (9.6-12.0); Monocytes % 8.2 % (1.7-12.7); Neutrophils % 58.5 % (38.7-73.9); Platelet Count 228 T/CUMM (130-400); Red Blood Count 4.32 MC/CUMM (3.8-5.5); Red Cell Distribution Width 13.8 % (9.3-17.3); White Blood Count 13.1 T/CUMM (4-12)
[2021-03-25 04:17] LABS: Alanine Aminotransferase 176 U/L (13-56); Albumin 2.7 G/DL (3.4-5.0); Alkaline Phosphatase 82 U/L (45-117); Aspartate Amino Transferase 28 U/L (0-37); Bilirubin,Total < 0.39 MG/DL (0.20-1.00); Blood Urea Nitrogen 15 MG/DL (7-18); Calcium 9.6 MG/DL (8.5-10.1); Carbon Dioxide 28 MMOL/L (21-32); Estimated Glom Filtration Rate 109 ML/MIN; Glucose 98 MG/DL (74-106); Osmolality,Calculated 277.5 MOS/KG (273-304); Potassium 3.7 MMOL/L (3.5-5.1); Sodium 139 MMOL/L (136-145); Total Protein 6.7 G/DL (6.4-8.2)
[2021-03-25] MEDS: INSULIN REGULAR 100 UNIT/ML SUBCUT SCH ×5 (05:21→20:57)
[2021-03-25] MEDS: INSULIN GLARGINE 100 UNIT/ML SUBCUT SCH ×2 (05:21→20:56)
[2021-03-25] MEDS: ENOXAPARIN 100 MG/ML SYRINGE SUBCUT SCH ×2 (09:39→21:30)
[2021-03-25] MEDS: POTASSIUM PHOS/SOD PHOS POWDER 250 MG PACK PO SCH ×3 (09:40→21:29)
[2021-03-25] MEDS: CHOLECALCIFEROL 1,000 UNIT TABLET PO SCH (09:40)
[2021-03-25] MEDS: FAMOTIDINE 20 MG TABLET PO SCH ×2 (09:40→21:30)
[2021-03-25] MEDS: POLYETHYLENE GLYCOL POWDER 17 GM PACK PO SCH (09:40)
[2021-03-25] MEDS: ZINC GLUCONATE 50 MG TABLET PO SCH (09:40)
[2021-03-25] MEDS: predniSONE 20 MG TABLET PO SCH (09:40)
[2021-03-25] MEDS: ASCORBIC ACID 500 MG TABLET PO SCH ×2 (09:41→21:30)
[2021-03-26] MEDS: ALBUTEROL INHALER 18 GM INH SCH ×4 (00:55→19:15)
[2021-03-26] MEDS: INSULIN REGULAR 100 UNIT/ML SUBCUT SCH ×4 (08:03→21:20)
[2021-03-26] MEDS: ENOXAPARIN 100 MG/ML SYRINGE SUBCUT SCH ×2 (09:33→21:11)
[2021-03-26] MEDS: POLYETHYLENE GLYCOL POWDER 17 GM PACK PO SCH (09:33)
[2021-03-26] MEDS: ZINC GLUCONATE 50 MG TABLET PO SCH (09:34)
[2021-03-26] MEDS: guaiFENesin/DM ER 600-30 MG TABLET PO PRN (09:34)
[2021-03-26] MEDS: FAMOTIDINE 20 MG TABLET PO SCH ×2 (09:34→21:11)
[2021-03-26] MEDS: predniSONE 20 MG TABLET PO SCH (09:34)
[2021-03-26] MEDS: POTASSIUM PHOS/SOD PHOS POWDER 250 MG PACK PO SCH (09:34)
[2021-03-26] MEDS: CHOLECALCIFEROL 1,000 UNIT TABLET PO SCH (09:34)
[2021-03-26] MEDS: ASCORBIC ACID 500 MG TABLET PO SCH ×2 (09:34→21:11)
[2021-03-26 09:36] LABS: Basophils % 0.2 % (0.0-0.8); Eosinophils # 0.2 10*3/uL (0.0-0.87); Eosinophils % 1.4 % (0.00-10.9); Hemoglobin 11.1 GM/DL (12.0-16.0); Immature Granulocytes Absolute 0.12 #; Lymphocytes # 3.1 10*3/uL (1.4-4.0); Mean Corpuscular HGB Conc 31.7 GM/DL (32-36); Mean Corpuscular Volume 85.4 FL (87-102); Mean Platelet Volume 10.4 FL (9.6-12.0); Monocytes % 7.7 % (1.7-12.7); Neutrophils % 63.7 % (38.7-73.9); Platelet Count 175 T/CUMM (130-400); Red Cell Distribution Width 14.2 % (9.3-17.3); White Blood Count 11.7 T/CUMM (4-12)
[2021-03-26 09:53] LABS: Alanine Aminotransferase 164 U/L (13-56); Albumin 2.6 G/DL (3.4-5.0); Alkaline Phosphatase 79 U/L (45-117); Aspartate Amino Transferase 45 U/L (0-37); Bilirubin,Total < 0.39 MG/DL (0.20-1.00); Blood Urea Nitrogen 18 MG/DL (7-18); Carbon Dioxide 26 MMOL/L (21-32); Estimated Glom Filtration Rate 95 ML/MIN; Glucose 159 MG/DL (74-106); Osmolality,Calculated 287.1 MOS/KG (273-304); Potassium 3.6 MMOL/L (3.5-5.1); Sodium 142 MMOL/L (136-145); Total Protein 6.3 G/DL (6.4-8.2)
[2021-03-26] MEDS ORDERED: GLUCAGON 1 MG VIAL IM PRN (17:19)
[2021-03-26] MEDS ORDERED: DEXTROSE 50% 25 GM/50 ML VIAL IV PRN (17:19)
[2021-03-26] MEDS: INSULIN GLARGINE 100 UNIT/ML SUBCUT SCH (21:22)
[2021-03-27] MEDS: ALBUTEROL INHALER 18 GM INH SCH ×2 (01:07→21:54)
[2021-03-27] MEDS: INSULIN REGULAR 100 UNIT/ML SUBCUT SCH ×4 (08:54→21:55)
[2021-03-27] MEDS: CHOLECALCIFEROL 1,000 UNIT TABLET PO SCH (08:55)
[2021-03-27] MEDS: ENOXAPARIN 100 MG/ML SYRINGE SUBCUT SCH ×2 (08:55→21:54)
[2021-03-27] MEDS: ZINC GLUCONATE 50 MG TABLET PO SCH (08:55)
[2021-03-27] MEDS: FAMOTIDINE 20 MG TABLET PO SCH ×2 (08:55→21:54)
[2021-03-27] MEDS: predniSONE 20 MG TABLET PO SCH (08:56)
[2021-03-27] MEDS: ASCORBIC ACID 500 MG TABLET PO SCH ×2 (08:56→21:53)
[2021-03-27] MEDS: POLYETHYLENE GLYCOL POWDER 17 GM PACK PO SCH (08:56)
[2021-03-27] MEDS ORDERED: ALUMINUM/MAGNES/SIMETH MAX STR 30 ML UDCUP PO ONE (09:00)
[2021-03-27] MEDS ORDERED: LORazepam 1 MG TABLET PO ONE (16:00)
[2021-03-27] MEDS: ACETAMINOPHEN 325 MG TABLET PER TUBE PRN (21:53)
[2021-03-27] MEDS: INSULIN GLARGINE 100 UNIT/ML SUBCUT SCH (21:55)
[2021-03-28] MEDS: INSULIN REGULAR 100 UNIT/ML SUBCUT SCH ×4 (07:51→22:28)
[2021-03-28] MEDS: FAMOTIDINE 20 MG TABLET PO SCH ×2 (10:19→22:29)
[2021-03-28] MEDS: CHOLECALCIFEROL 1,000 UNIT TABLET PO SCH (10:19)
[2021-03-28] MEDS: predniSONE 20 MG TABLET PO SCH (10:20)
[2021-03-28] MEDS: ZINC GLUCONATE 50 MG TABLET PO SCH (10:20)
[2021-03-28] MEDS: ENOXAPARIN 100 MG/ML SYRINGE SUBCUT SCH ×2 (10:20→22:27)
[2021-03-28] MEDS: POLYETHYLENE GLYCOL POWDER 17 GM PACK PO SCH (11:18)
[2021-03-28] MEDS: ASCORBIC ACID 500 MG TABLET PO SCH ×2 (15:43→22:29)
[2021-03-28] MEDS: INSULIN GLARGINE 100 UNIT/ML SUBCUT SCH (22:28)
[2021-03-29] MEDS: INSULIN REGULAR 100 UNIT/ML SUBCUT SCH ×4 (10:50→21:27)
[2021-03-29] MEDS: POLYETHYLENE GLYCOL POWDER 17 GM PACK PO SCH (10:50)
[2021-03-29] MEDS: CHOLECALCIFEROL 1,000 UNIT TABLET PO SCH (10:53)
[2021-03-29] MEDS: ENOXAPARIN 100 MG/ML SYRINGE SUBCUT SCH ×2 (10:53→21:23)
[2021-03-29] MEDS: FAMOTIDINE 20 MG TABLET PO SCH ×2 (10:53→21:27)
[2021-03-29] MEDS: ZINC GLUCONATE 50 MG TABLET PO SCH (10:53)
[2021-03-29] MEDS: ASCORBIC ACID 500 MG TABLET PO SCH ×2 (10:54→21:23)
[2021-03-29] MEDS: predniSONE 20 MG TABLET PO SCH (10:54)
[2021-03-29] MEDS: INSULIN GLARGINE 100 UNIT/ML SUBCUT SCH (21:26)
[2021-03-30 07:01] LABS: Calcium 9.1 MG/DL (8.5-10.1); Osmolality,Calculated 280.1 MOS/KG (273-304); Potassium 3.7 MMOL/L (3.5-5.1)
[2021-03-30] MEDS: INSULIN REGULAR 100 UNIT/ML SUBCUT SCH ×4 (10:02→22:48)
[2021-03-30] MEDS: predniSONE 20 MG TABLET PO SCH (10:39)
[2021-03-30] MEDS: ASCORBIC ACID 500 MG TABLET PO SCH ×2 (10:39→22:47)
[2021-03-30] MEDS: CHOLECALCIFEROL 1,000 UNIT TABLET PO SCH (10:40)
[2021-03-30] MEDS: ZINC GLUCONATE 50 MG TABLET PO SCH (10:40)
[2021-03-30] MEDS: FAMOTIDINE 20 MG TABLET PO SCH ×2 (10:40→22:47)
[2021-03-30] MEDS: ENOXAPARIN 100 MG/ML SYRINGE SUBCUT SCH ×2 (10:40→22:49)
[2021-03-30] MEDS: POLYETHYLENE GLYCOL POWDER 17 GM PACK PO SCH (10:40)
[2021-03-30] MEDS: INSULIN GLARGINE 100 UNIT/ML SUBCUT SCH (22:48)
[2021-03-31] MEDS: ENOXAPARIN 100 MG/ML SYRINGE SUBCUT SCH (08:42)
[2021-03-31] MEDS: ZINC GLUCONATE 50 MG TABLET PO SCH (08:43)
[2021-03-31] MEDS: predniSONE 20 MG TABLET PO SCH (08:43)
[2021-03-31] MEDS: FAMOTIDINE 20 MG TABLET PO SCH ×2 (08:43→23:14)
[2021-03-31] MEDS: CHOLECALCIFEROL 1,000 UNIT TABLET PO SCH (08:43)
[2021-03-31] MEDS: ASCORBIC ACID 500 MG TABLET PO SCH ×2 (08:43→23:15)
[2021-03-31] MEDS: POLYETHYLENE GLYCOL POWDER 17 GM PACK PO SCH (08:44)
[2021-03-31] MEDS: INSULIN REGULAR 100 UNIT/ML SUBCUT SCH ×4 (09:32→23:18)
[2021-03-31] MEDS ORDERED: POLYETHYLENE GLYCOL POWDER 17 GM PACK PO PRN (11:57)
[2021-03-31] MEDS: ALBUTEROL INHALER 18 GM INH SCH (13:41)
[2021-03-31] MEDS: MELATONIN 3 MG TABLET PO PRN (23:14)
[2021-04-01 05:28] LABS: Basophils % 0.2 % (0.0-0.8); Eosinophils # 0.1 10*3/uL (0.0-0.87); Eosinophils % 1.1 % (0.00-10.9); Immature Granulocytes % 1.2 %; Immature Granulocytes Absolute 0.15 #; Lymphocytes # 3.5 10*3/uL (1.4-4.0); Lymphocytes % 28.5 % (21.3-54.2); Mean Corpuscular HGB Conc 31.4 GM/DL (32-36); Mean Corpuscular Volume 87.1 FL (87-102); Monocytes % 6.1 % (1.7-12.7); Neutrophils % 62.9 % (38.7-73.9); Platelet Count 114 T/CUMM (130-400); Red Blood Count 4.02 MC/CUMM (3.8-5.5); Red Cell Distribution Width 15.5 % (9.3-17.3); White Blood Count 12.4 T/CUMM (4-12)
[2021-04-01 05:38] LABS: Calcium 8.7 MG/DL (8.5-10.1); Osmolality,Calculated 282.1 MOS/KG (273-304); Potassium 3.8 MMOL/L (3.5-5.1)
[2021-04-01] MEDS: INSULIN REGULAR 100 UNIT/ML SUBCUT SCH ×2 (08:58→14:06)
[2021-04-01] MEDS ORDERED: CHOLECALCIFEROL 5,000 UNIT TABLET PO SCH (09:00)
[2021-04-01] MEDS ORDERED: predniSONE 10 MG TABLET PO SCH (09:00)
[2021-04-01] MEDS ORDERED: ENOXAPARIN 40 MG/0.4 ML SYRINGE SUBCUT SCH (09:00)
[2021-04-01] MEDS: ZINC GLUCONATE 50 MG TABLET PO SCH (09:32)
[2021-04-01] MEDS: FAMOTIDINE 20 MG TABLET PO SCH (09:33)
[2021-04-01] MEDS: ASCORBIC ACID 500 MG TABLET PO SCH (09:33)
[2021-04-01 12:35] VITALS: BP 110/62
[2021-04-01] MEDS: ALBUTEROL INHALER 18 GM INH SCH (15:55)
== END 2021-04-01 13:00 | disposition home or self-care (01) | DRG 207 ==
LOC: N.CC 23:00 → SUATTDRO 23:00 → N.5E 03-26 10:28
PROVIDERS: ADMIT Internal Medicine; ATTEND Internal Medicine